=== PATIENT | female | born 2000 | race Caucasian/White ===

== ENCOUNTER 2022-08-16 14:27 | Inpatient (IN) | payer OTHER, SELFPAY ==
[2022-08-16] VITALS (35 sets, daily range): BP systolic 123–173; BP diastolic 70–105; PULSE 59–95; TEMP 36.3–36.5; BMI 37.3
[2022-08-16 15:07] LABS: Basophils Percent Auto 0.2 % (0.2-1.2); Eosinophils Percent Auto 0.3 % (0-4.4); Hematocrit 33.8 % (37.0-47.0); Hemoglobin 10.8 g/dL (12.0-15.0); Immature Granulocyte Absolute 0.03 K/mm3 (0.00-0.031); Immature Granulocyte Percent A 0.3 % (0-0.5); Lymphocytes Absolute Auto 1.44 K/mm3 (0.9-3.2); Lymphocytes Percent Auto 13.5 % (18.3-44.2); Mean Corpuscular Hemoglobin 28.3 pg (26-34); Mean Corpuscular Volume 88.5 fl (80-100); Mean Platelet Volume 12.6 fl (7.4-10.4); Monocytes Absolute Auto 0.5 K/mm3 (0.1-0.6); Monocytes Percent Auto 4.9 % (2.6-8.5); Neutrophils Absolute Auto 8.6 K/mm3 (1.3-6.7); Neutrophils Percent Auto 80.8 % (45.5-73.1); Platelet Count Result 185 k/mm3 (150-375); Red Blood Count 3.82 M/mm3 (4.2-5.4); Red Cell Distribution Width 15.2 % (11.5-14.5); White Blood Count 10.7 K/mm3 (4.5-10.0)
[2022-08-16 15:16] LABS: Alanine Aminotransferase 15 U/L (6-35); Albumin Level 3.2 g/dL (3.5-5.1); Alkaline Phosphatase 165 U/L (38-126); Anion Gap 5 mmol/L (8-16); Aspartate Amino Transferase 18 U/L (14-36); Bilirubin,Total 0.3 mg/dL (0.2-1.3); Blood Urea Nitrogen 13 mg/dL (7-17); Calcium 8.2 mg/dL (8.4-10.2); Carbon Dioxide 20 mmol/L (22-30); Chloride 108 mmol/L (98-107); Estimated Glomerular Filt Rate > 60; Glucose 100 mg/dL (65-110); Sodium 133 mmol/L (137-145); Uric Acid 6.4 mg/dL (2.5-7.5)
[2022-08-16 15:23] LABS: Appearance Urine Turbid (Clear); Bacteria Urine 4+ /hpf; Bilirubin Urine Negative (Negative); Blood Urine Negative (Negative); Color Urine Dark Yellow (Yellow); Glucose Urine UA Negative (Negative); Hyaline Casts Urine Present /lpf; Ketones Urine Trace mg/dL (Negative); Leukocyte Esterase Ur 1+ LEU/UL (NEGATIVE); Mucus Urine Present /lpf; Nitrate Urine Negative (Negative); Non Pathogenic Casts >20; Protein Urine 4+ mg/dL (Negative); RBC Urine 0-2 /hpf (0-2); Squamous Epithelial Cell Urine Many /hpf (Few); WBC Urine 21-50 /hpf (0-3)
[2022-08-16 15:32] LABS: Specific Grav Ur 1.041 (1.001-1.035)
[2022-08-16 15:33] LABS: Add Urine Microscopic? YES
--- NOTE | 2022-08-16 15:50 | PC.NURSE ---
CNM reviewed vitals and labs on unit. Verbal orders given to start 24 hour urine collection as well as giving first dose of betamethasone.
[2022-08-16] MEDS: BETAMETHASONE SOD PHOS/ACETATE 30 MG/5 ML VIAL 12 MG IM (16:03)
[2022-08-16 16:15] LABS: Creatinine Urine 303.5 mg/dL
[2022-08-16] MEDS: LABETALOL HCL 100 MG TABLET 200 MG PO (16:36)
[2022-08-16 16:46] LABS: Total Protein Urine Random > 600 mg/dL
[2022-08-16] MEDS: LABETALOL HCL INJ 100 MG/20 ML VIAL 20 MG IV PUSH (17:14)
--- NOTE | 2022-08-16 17:50 | PC.NURSE ---
Patient's blood pressures have remained in the severe range despite medication. Verbal orders to move patient to labor and delivery and induce received from CNM.
--- NOTE | 2022-08-16 17:52 | LDADM ---
This patient, MEAGAN SHER, was admitted to Labor/Delivery/Recovery 105 on 08/16/22 at 14:27. Plans for labor, pain management and were discussed with patient. Patient/family oriented to hospital policies and general routines including ID bracelet, bed and alarms, visiting hours, pain management, procedures, bathroom and other care routines, personal items, smoking policy, room service/diet and guest tray routines, security routines, and visiting hours. Patient/Family are encouraged to report perceived risks to care and to ask questions if they do not understand what they are told or what they should do. See OBIX for further documentation.
[2022-08-16] MEDS: MAGNESIUM SULF 4 GM/WATER100ML 4 GM/100 ML BAG IVPB (18:12)
--- NOTE | 2022-08-16 18:28 | PC.NURSE ---
Patient moved from room 116 to room 104. tracing from [id number]: Baseline- 135 with moderate variability. 15x15 accelerations present, no decelerations present. [id number] baseline 155 with moderate variability. No accelerations present with recurrent variables.
[2022-08-16] MEDS: MAGNESIUM SULF 20GM/WATER500ML 500 ML 50 MG IV CONT (18:42)
[2022-08-16] MEDS: DINOPROSTONE 10 MG VAG INSERT VAGINAL (18:50)
--- NOTE | 2022-08-16 18:55 | WPDANESEPP ---
Anes - Eval Pre Procedure Procedure: labor epidural Date/Time: 08/16/22 18:55 Pre Op Diagnosis: [facility] Labs Patient Data Age: 22 Gender: F Height: Weight: Last Vital Signs Temp 36.3 C L 08/16/22 18:11 Pulse 80 08/16/22 18:51 BP 142/89 H 08/16/22 18:51 Allergies Allergy/AdvReac Type Severity Reaction Status Date / Time No Known Allergies Allergy Verified 08/16/22 16:03 Laboratory Tests 08/16/22 08/16/22 14:50 17:43 WBC 10.7 H K/mm3 (4.5-10.0) RBC 3.82 L M/mm3 (4.2-5.4) Hgb 10.8 L g/dL (12.0-15.0) Hct 33.8 L % (37.0-47.0) MCV 88.5 fl (80-100) MCH 28.3 pg (26-34) MCHC 32.0 g/dl (32-36) RDW 15.2 H % (11.5-14.5) Plt Count 185 k/mm3 (150-375) MPV 12.6 H fl (7.4-10.4) Immature Gran % (Auto) 0.3 % (0-0.5) Neut % (Auto) 80.8 H % (45.5-73.1) Lymph % (Auto) 13.5 L % (18.3-44.2) [place] % (Auto) 4.9 % (2.6-8.5) Eos % (Auto) 0.3 % (0-4.4) Baso % (Auto) 0.2 % (0.2-1.2) Lymph # (Auto) 1.44 K/mm3 (0.9-3.2) [place] # (Auto) 0.5 K/mm3 (0.1-0.6) Eos # (Auto) 0.0 K/mm3 (0-0.3) Baso # (Auto) 0.0 K/mm3 (0.0-0.1) Abs Immat Gran (auto) 0.03 K/mm3 (0.00-0.031) Absolute Neuts (auto) 8.6 H K/mm3 (1.3-6.7) Absolute Nucleated RBC 0.0 K/mm3 (0.0-0.012) Nucleated RBC % 0.0 % (0.0-0.2) Sodium 133 L mmol/L (137-145) Potassium 4.0 mmol/L (3.4-5.0) Chloride 108 H mmol/L (98-107) Carbon Dioxide 20 L mmol/L (22-30) Anion Gap 5 L mmol/L (8-16) BUN 13 mg/dL (7-17) Creatinine 0.60 L mg/dL (0.7-1.0) Estim Creat Clear Calc Not Reportable Estimated GFR > 60 (59 - ) Glucose 100 mg/dL (65-110) Uric Acid 6.4 mg/dL (2.5-7.5) Calcium 8.2 L mg/dL (8.4-10.2) Total Bilirubin 0.3 mg/dL (0.2-1.3) AST 18 U/L (14-36) ALT 15 U/L (6-35) Alkaline Phosphatase 165 H U/L (38-126) Total Protein 6.0 L g/dL (6.3-8.2) Albumin 3.2 L g/dL (3.5-5.1) Urine Color Dark yellow (Yellow) Urine Appearance Turbid H (Clear) Urine pH 6.0 (5.0-9.0) Ur Specific [place] 1.041 H (1.001-1.035) Urine Protein 4+ H mg/dL (Negative) Urine Glucose (UA) Negative mg/dL (Negative) Urine Ketones Trace H mg/dL (Negative) Ur Blood (Man) Negative (Negative) Urine Nitrate Negative (Negative) Urine Bilirubin Negative (Negative) Urine Urobilinogen 1.0 mg/dL (<2.0) Ur Leukocyte Esterase 1+ H FUAD/UL (NEGATIVE) Urine RBC 0-2 /hpf (0-2) Urine WBC 21-50 /hpf (0-3) Ur Squamous Epith Cells Many H /hpf (Few) Urine Bacteria 4+ H /hpf Urine Casts >20 Hyaline Casts Present /lpf (None) Urine Mucus Present /lpf U Random Total Protein > 600 mg/dL Urine Creatinine 303.5 mg/dL Protein/Creat Ratio 2 > 1.98 H mg/mg (0-0.20) RPR Pending Blood Type A Positive Antibody Screen Negative Patient hx anesthesia problems: none Family hx anesthesia problems: none Results Review: All pre-operative results and documents have been reviewed as part of the pre-operative evaluation. [facility] Past Medical History Medical History (Updated 08/16/22 @ 18:59 by Aimee Olivera CRNA) Adreno-leukodystrophy Obesity (BMI 30-39.9) PIH ( induced hypertension) Exam Day of Procedure 08/16/22 18:55 Patient weight: obese Heart: regular rate and rhythm Lungs: normal air movement Neurological: alert and oriented
[2022-08-17] VITALS (224 sets, daily range): BP systolic 116–150; BP diastolic 67–100; PULSE 58–101; RESP 15–18; TEMP 36.4–36.8; O2SAT 92–100
[2022-08-17 03:35] LABS: Magnesium 5.6 mg/dL (1.6-2.3)
[2022-08-17] MEDS: MAGNESIUM SULF 20GM/WATER500ML 500 ML 50 MG IV CONT ×2 (04:42→14:05)
[2022-08-17] MEDS: LACTATED RINGERS 1,000 ML 75 ML IV CONT ×3 (07:23→23:41)
[2022-08-17] MEDS: miSOPROStol 25 MCG TABLET SUBLINGUAL ×2 (07:54→12:00)
[2022-08-17] MEDS: LABETALOL HCL 100 MG TABLET 200 MG PO ×2 (08:11→19:59)
--- NOTE | 2022-08-17 08:54 | PM.IMHP ---
H&P: HPI History of Present Illness Date/Time: 08/17/22 08:54 Chief Complaint: pt presented 08/16/22 in the office for routine ob visit and had elevated blood pressure x 2. 3+ proteinuria. Pt denied headache, visual changes, epigastric pain. has been complicated. rubella non-immune on panel. family history of x-linked adrenoleukodystrophy. bpp in office 09/17. and pt arrived in LD with severe range blood pressures. Oral and IV labetalol were given and magnesium sulfate was initiated, betamethasone x 1 given and decision was made with Dr. ramos to proceed with induction of labor.pt remains asymptomatic and blood pressures elevated without being severe range Review of Systems Review of Systems: All systems reviewed & are unremarkable except as noted in HPI and below [facility] Past Medical History Medical History (Updated 08/17/22 @ 09:08 by Nhi Cano CNM) Adreno-leukodystrophy Obesity (BMI 30-39.9) PIH ( induced hypertension) Social History Social History Smoking status: Never smoker Lack of Transportation: No Lack of Food: Never True Current Housing: I Do Not Have Housing Concerned About Future Housing: No Difficulty Paying Gas/Electric Bills: No Difficulty Paying for Meds: No Currently Unemployed: No Education: High School Diploma/GED Difficulty w/ Childcare or Family Care: No Meds Home Medications and Allergies Allergies Allergy/AdvReac Type Severity Reaction Status Date / Time No Known Allergies Allergy Verified 08/16/22 16:03 Vital Signs Vital Signs - 24 hr 08/16/22 14:55 08/16/22 15:01 08/16/22 15:16 Temperature Pulse Rate 70 75 74 Respiratory Rate Blood Pressure 141/96 H 144/95 H 153/85 H Blood Pressure [Left Arm] Pulse Oximetry Oxygen Delivery 08/16/22 15:31 08/16/22 15:46 08/16/22 16:01 Temperature Pulse Rate 61 59 L 62 Respiratory Rate Blood Pressure 162/97 H 160/97 H 166/102 H Blood Pressure [Left Arm] Pulse Oximetry Oxygen Delivery 08/16/22 16:17 08/16/22 16:31 08/16/22 16:46 Temperature Pulse Rate 63 59 L 62 Respiratory Rate Blood Pressure 146/100 H 164/98 H 172/105 H Blood Pressure [Left Arm] Pulse Oximetry Oxygen Delivery 08/16/22 17:16 08/16/22 17:31 08/16/22 17:46 Temperature Pulse Rate 67 70 81 Respiratory Rate Blood Pressure 173/102 H 158/100 H 139/102 H Blood Pressure [Left Arm] Pulse Oximetry Oxygen Delivery 08/16/22 18:01 08/16/22 18:11 08/16/22 18:13 Temperature 36.3 C L Pulse Rate 70 78 Respiratory Rate Blood Pressure 153/94 H 152/98 H Blood Pressure [Left Arm] Pulse Oximetry Oxygen Delivery 08/16/22 18:15 08/16/22 18:16 08/16/22 18:21 Temperature Pulse Rate 81 81 78 Respiratory Rate Blood Pressure 148/101 H 154/97 H 142/92 H Blood Pressure [Left Arm] Pulse Oximetry Oxygen Delivery 08/16/22 18:25 08/16/22 18:30 08/16/22 18:35 Temperature Pulse Rate 87 85 85 Respiratory Rate Blood Pressure 142/85 H 145/92 H 140/90 Blood Pressure [Left Arm] Pulse Oximetry Oxygen Delivery 08/16/22 18:51 08/16/22 19:00 08/16/22 19:15 Temperature Pulse Rate 80 72 71 Respiratory Rate Blood Pressure 142/89 H 133/84 137/88 Blood Pressure [Left Arm] Pulse Oximetry Oxygen Delivery 08/16/22 19:30 08/16/22 20:00 08/16/22 20:30 Temperature Pulse Rate 78 85 79 Respiratory Rate Blood Pressure 141/88 H 140/91 H 135/82 Blood Pressure [Left Arm] Pulse Oximetry Oxygen Delivery 08/16/22 21:00 08/16/22 21:30 08/16/22 22:00 Temperature Pulse Rate 95 70 71 Respiratory Rate Blood Pressure 139/70 126/72 125/78 Blood Pressure [Left Arm] Pulse Oximetry Oxygen Delivery 08/16/22 22:30 08/16/22 23:00 08/17/22 00:00 Temperature 36.5 C Pulse Rate 72 76 75 Respiratory Rate Blood Pressu
[2022-08-17] MEDS: BETAMETHASONE SOD PHOS/ACETATE 30 MG/5 ML VIAL 12 MG IM (15:57)
[2022-08-17] MEDS: AMPICILLIN 2 GM/NS 100 ML 2 GM/100 ML BAG IVPB (16:31)
[2022-08-17] MEDS: OXYTOCIN 30 UNITS/NS 500 ML 30 UNITS/500 ML BAG 6 UNITS IV CONT (16:35)
[2022-08-17] MEDS: AMPICILLIN 1 GM/NS 50 ML 1 GM/50 ML BAG IVPB (19:59)
[2022-08-17 20:15] LABS: Albumin Level 3.2 g/dL (3.5-5.1); Alkaline Phosphatase 187 U/L (38-126); Anion Gap 5 mmol/L (8-16); Aspartate Amino Transferase 21 U/L (14-36); Bilirubin,Total 0.3 mg/dL (0.2-1.3); Blood Urea Nitrogen 11 mg/dL (7-17); Carbon Dioxide 20 mmol/L (22-30); Chloride 101 mmol/L (98-107); Estimated CRCL calculation 147 ml/min; Estimated Glomerular Filt Rate > 60; Glucose 145 mg/dL (65-110); Potassium 4.1 mmol/L (3.4-5.0); Sodium 126 mmol/L (137-145); Uric Acid 6.4 mg/dL (2.5-7.5)
[2022-08-17 20:24] LABS: Alanine Aminotransferase 32 U/L (6-35)
[2022-08-17 20:24] LABS: Basophils Percent Auto 0.1 % (0.2-1.2); Hematocrit 34.5 % (37.0-47.0); Hemoglobin 11.1 g/dL (12.0-15.0); Immature Granulocyte Absolute 0.16 K/mm3 (0.00-0.031); Immature Granulocyte Percent A 1.1 % (0-0.5); Lymphocytes Absolute Auto 0.73 K/mm3 (0.9-3.2); Lymphocytes Percent Auto 5.2 % (18.3-44.2); Mean Corpuscular HGB Conc 32.2 g/dl (32-36); Mean Corpuscular Hemoglobin 28.5 pg (26-34); Mean Corpuscular Volume 88.5 fl (80-100); Monocytes Absolute Auto 0.2 K/mm3 (0.1-0.6); Monocytes Percent Auto 1.6 % (2.6-8.5); Platelet Count Result 191 k/mm3 (150-375); Red Cell Distribution Width 15.7 % (11.5-14.5); White Blood Count 14.1 K/mm3 (4.5-10.0)
[2022-08-17] MEDS: ONDANSETRON INJ 4 MG/2 ML VIAL IV PUSH (22:46)
[2022-08-18] VITALS (292 sets, daily range): BP systolic 93–207; BP diastolic 52–160; PULSE 53–198; RESP 10–18; TEMP 36.2–37.1; O2SAT 94–100; BMI 37.5
[2022-08-18] MEDS: AMPICILLIN 1 GM/NS 50 ML 1 GM/50 ML BAG IVPB ×3 (00:06→08:04)
--- NOTE | 2022-08-18 08:12 | PM.OBPNVD ---
OB - PN: Subj Subjective Date/time seen: 08/18/22 08:12 IOL, preeclampsia with severe features, denies headache, visual changes, epigastric pain. Blood pressures currently normotensive. slightly elevated liver enzymes. Pt comfortable with epidural. OB - PN: Obj Data Labs 08/17/22 20:20 08/17/22 19:53 Labs: Laboratory Results - last 24 hr 08/17/22 08/17/22 19:53 20:20 WBC 14.1 H RBC 3.90 L Hgb 11.1 L Hct 34.5 L MCV 88.5 MCH 28.5 MCHC 32.2 RDW 15.7 H Plt Count 191 MPV 12.0 H Immature Gran % (Auto) 1.1 H Neut % (Auto) 92.0 H Lymph % (Auto) 5.2 L [place] % (Auto) 1.6 L Eos % (Auto) 0.0 Baso % (Auto) 0.1 L Lymph # (Auto) 0.73 L [place] # (Auto) 0.2 Eos # (Auto) 0.0 Baso # (Auto) 0.0 Abs Immat Gran (auto) 0.16 H Absolute Neuts (auto) 13.0 H Absolute Nucleated RBC 0.0 Nucleated RBC % 0.0 Sodium 126 L Potassium 4.1 Chloride 101 Carbon Dioxide 20 L Anion Gap 5 L BUN 11 Creatinine 0.60 L Estim Creat Clear Calc 147 Estimated GFR > 60 Glucose 145 H Uric Acid 6.4 Calcium 7.0 L Total Bilirubin 0.3 AST 21 ALT 32 Alkaline Phosphatase 187 H Total Protein 6.0 L Albumin 3.2 L OB - PN A/P Assessment and Plan (1) Severe preeclampsia: Code(s): O14.10 - Severe pre-eclampsia, unspecified trimester Status: Acute Plan preeclampsia with severe features continue to monitor, IOL co-managed with Dr. Pollack Time Spent With Patient Time: Total time spent is greater than 50% in coordination of care (as documented) at patient's floor/unit and/or counseling patient: Review of Systems Review of Systems: All systems reviewed & are unremarkable except as noted in HPI and below Exam Const: General: cooperative Chest: Chest palpation & inspection: normal inspection of the chest Resp: Effort & Inspection: normal respiratory effort Cardio: Rate: regular rate Rhythm: regular rhythm GI: Other: gravid, soft in between contractions : Other: SVE 5/80/-2, AROM small amount of clear, odorless fluid, bloody show Urinary Catheter: Urinary Catheter: patent and draining Skin: General skin exam: normal color Extrem: Right lower extremity: normal to inspection Left lower extremity: normal to inspection Psych: Appearance: grossly normal
[2022-08-18] MEDS: diphenhydrAMINE HCl INJ 50 MG/ML VIAL 25 MG IV PUSH (08:27)
[2022-08-18] MEDS: OXYTOCIN 10 UNITS/ML VIAL 20 UNITS (10:55)
[2022-08-18] MEDS: MAGNESIUM SULF 20GM/WATER500ML 500 ML 50 MG IV CONT ×3 (10:58→22:18)
--- NOTE | 2022-08-18 11:05 | PM.OBPRVD ---
OB - Delivery Note Procedure Delivery date: 08/18/22 Procedure: Events: Oligohydramnios and Preeclampsia w severe features Induction method: AROM, Per Misoprostol Protocol, Per Pitocin Protocol and Per Cervidil Protocol Delivery monitor: External FHT, External Uterine and Internal Uterine Route of delivery: Laceration Description: Labial (right) Delivery repair: vicryl Specimen: Yes Quantitative Blood Loss (ml): 380 Anesthesia type: Epidural Disposition: Floor [place] Baby Date of : 08/18/22 Time of : 10:51 Weeks of gestation at delivery: 35 Infant gender: Female Weight (pounds): 5 Weight (ounces): 9 presentation: vertex position: Left Occiput Anterior Placenta delivery description: Spontaneous Cord Vessel Description: 3 Vessels and Clamped/Cut Narrative: baby to warmer, mother in stable condition
[2022-08-18 14:23] LABS: Magnesium 7.2 mg/dL (1.6-2.3)
[2022-08-18 14:46] LABS: Hematocrit 28.6 % (37.0-47.0); Hemoglobin 8.8 g/dL (12.0-15.0); Mean Corpuscular HGB Conc 30.8 g/dl (32-36); Mean Corpuscular Hemoglobin 27.9 pg (26-34); Mean Corpuscular Volume 90.8 fl (80-100); Mean Platelet Volume 12.5 fl (7.4-10.4); Platelet Count Result 210 k/mm3 (150-375); Red Blood Count 3.15 M/mm3 (4.2-5.4); Red Cell Distribution Width 15.8 % (11.5-14.5); White Blood Count 20.3 K/mm3 (4.5-10.0)
[2022-08-18 14:52] LABS: Alanine Aminotransferase 31 U/L (6-35); Albumin Level 2.7 g/dL (3.5-5.1); Alkaline Phosphatase 150 U/L (38-126); Anion Gap 4 mmol/L (8-16); Aspartate Amino Transferase 22 U/L (14-36); Bilirubin,Total 0.4 mg/dL (0.2-1.3); Blood Urea Nitrogen 13 mg/dL (7-17); Calcium 7.3 mg/dL (8.4-10.2); Carbon Dioxide 22 mmol/L (22-30); Chloride 99 mmol/L (98-107); Estimated CRCL calculation 101 ml/min; Estimated Glomerular Filt Rate > 60; Glucose 133 mg/dL (65-110); Potassium 4.3 mmol/L (3.4-5.0); Sodium 125 mmol/L (137-145); Uric Acid 6.9 mg/dL (2.5-7.5)
[2022-08-18] MEDS: LACTATED RINGERS 1,000 ML 75 ML IV CONT (15:33)
--- NOTE | 2022-08-18 17:13 | OBPPTRN ---
1711-Patient transferred to post room #281 via wheelchair. Support person present. Oriented to unit, room, information board, rooming in, admission packet and security measures. Patient verbalizes understanding.
[2022-08-18] MEDS: DOCUSATE SODIUM 100 MG CAPSULE PO (19:26)
[2022-08-18] MEDS: ACETAMINOPHEN 325 MG TABLET 650 MG PO (19:26)
[2022-08-18] MEDS: IBUPROFEN 600 MG TABLET PO (19:27)
[2022-08-18] MEDS: WITCH HAZEL 40 PADS 1 PAD TOPICAL (19:27)
[2022-08-18] MEDS: POLYSACCHARIDE IRON COMPLEX 150 MG CAPSULE PO (19:28)
[2022-08-18] MEDS: BENZOCAINE 20% AER SPR (*SP) 56 GM CAN 1 SPRAY TOPICAL (19:28)
[2022-08-18] MEDS: LABETALOL HCL 100 MG TABLET 200 MG PO (21:22)
[2022-08-19] VITALS (7 sets, daily range): BP systolic 126–155; BP diastolic 74–99; PULSE 65–72; RESP 16–18; TEMP 36.3–38.3; O2SAT 99
[2022-08-19] MEDS: IBUPROFEN 600 MG TABLET PO ×3 (00:36→13:53)
[2022-08-19] MEDS: ACETAMINOPHEN 325 MG TABLET 650 MG PO ×3 (00:36→13:53)
[2022-08-19] MEDS: LACTATED RINGERS 1,000 ML 75 ML IV CONT (04:28)
[2022-08-19 05:05] LABS: Basophils Percent Auto 0.1 % (0.2-1.2); Hematocrit 27.1 % (37.0-47.0); Hemoglobin 8.5 g/dL (12.0-15.0); Immature Granulocyte Absolute 0.09 K/mm3 (0.00-0.031); Immature Granulocyte Percent A 0.8 % (0-0.5); Lymphocytes Absolute Auto 1.52 K/mm3 (0.9-3.2); Lymphocytes Percent Auto 12.7 % (18.3-44.2); Mean Corpuscular HGB Conc 31.4 g/dl (32-36); Mean Corpuscular Hemoglobin 28.5 pg (26-34); Mean Corpuscular Volume 90.9 fl (80-100); Mean Platelet Volume 12.5 fl (7.4-10.4); Monocytes Absolute Auto 0.5 K/mm3 (0.1-0.6); Monocytes Percent Auto 4.5 % (2.6-8.5); Neutrophils Absolute Auto 9.8 K/mm3 (1.3-6.7); Neutrophils Percent Auto 81.9 % (45.5-73.1); Platelet Count Result 169 k/mm3 (150-375); Red Blood Count 2.98 M/mm3 (4.2-5.4); Red Cell Distribution Width 15.7 % (11.5-14.5)
[2022-08-19 05:16] LABS: Alanine Aminotransferase 16 U/L (6-35); Albumin Level 2.6 g/dL (3.5-5.1); Alkaline Phosphatase 133 U/L (38-126); Anion Gap 3 mmol/L (8-16); Aspartate Amino Transferase 20 U/L (14-36); Bilirubin,Total 0.2 mg/dL (0.2-1.3); Blood Urea Nitrogen 17 mg/dL (7-17); Calcium 6.8 mg/dL (8.4-10.2); Carbon Dioxide 24 mmol/L (22-30); Chloride 100 mmol/L (98-107); Estimated CRCL calculation 92 ml/min; Estimated Glomerular Filt Rate > 60; Glucose 95 mg/dL (65-110); Potassium 4.3 mmol/L (3.4-5.0); Sodium 127 mmol/L (137-145); Uric Acid 7.2 mg/dL (2.5-7.5)
[2022-08-19 05:37] LABS: Rapid Plasma Reagin Non-Reactive (NonReactive)
--- NOTE | 2022-08-19 06:42 | PM.OBPNVD ---
OB - PN: Subj Subjective Date/time seen: 08/19/22 06:42 delivered, preeclampsia with severe features currently denies headache, visual changes, epigastric pain blood pressures normotensive liver enzymes stable PLT 169 OB - PN: Obj Data Labs 08/19/22 04:25 08/19/22 04:25 Labs: Laboratory Results - last 24 hr 08/16/22 08/18/22 08/18/22 17:43 14:00 14:06 WBC RBC Hgb Hct MCV MCH MCHC RDW Plt Count MPV Immature Gran % (Auto) Neut % (Auto) Lymph % (Auto) [place] % (Auto) Eos % (Auto) Baso % (Auto) Lymph # (Auto) [place] # (Auto) Eos # (Auto) Baso # (Auto) Abs Immat Gran (auto) Absolute Neuts (auto) Absolute Nucleated RBC Nucleated RBC % Sodium 125 L Potassium 4.3 Chloride 99 Carbon Dioxide 22 Anion Gap 4 L BUN 13 Creatinine 0.90 Estim Creat Clear Calc 101 Estimated GFR > 60 Glucose 133 H Uric Acid 6.9 Calcium 7.3 L Magnesium 7.2 H Total Bilirubin 0.4 AST 22 ALT 31 Alkaline Phosphatase 150 H Total Protein 5.0 L Albumin 2.7 L RPR Non-reactive 08/18/22 08/19/22 14:34 04:25 WBC 20.3 H 12.0 H RBC 3.15 L 2.98 L Hgb 8.8 L 8.5 L Hct 28.6 L 27.1 L MCV 90.8 90.9 MCH 27.9 28.5 MCHC 30.8 L 31.4 L RDW 15.8 H 15.7 H Plt Count 210 169 MPV 12.5 H 12.5 H Immature Gran % (Auto) 0.8 H Neut % (Auto) 81.9 H Lymph % (Auto) 12.7 L [place] % (Auto) 4.5 Eos % (Auto) 0.0 Baso % (Auto) 0.1 L Lymph # (Auto) 1.52 [place] # (Auto) 0.5 Eos # (Auto) 0.0 Baso # (Auto) 0.0 Abs Immat Gran (auto) 0.09 H Absolute Neuts (auto) 9.8 H Absolute Nucleated RBC 0.0 Nucleated RBC % 0.0 Sodium 127 L Potassium 4.3 Chloride 100 Carbon Dioxide 24 Anion Gap 3 L BUN 17 Creatinine 1.00 Estim Creat Clear Calc 92 Estimated GFR > 60 Glucose 95 Uric Acid 7.2 Calcium 6.8 L Magnesium Total Bilirubin 0.2 AST 20 ALT 16 Alkaline Phosphatase 133 H Total Protein 5.0 L Albumin 2.6 L RPR OB - PN A/P Plan day: 1 Plan: routine care Comments: magnesium sulfate plan to d/c this am continue to monitor blood pressures and symptoms co-managing with Dr. Pollack Time Spent With Patient Time: Total time spent is greater than 50% in coordination of care (as documented) at patient's floor/unit and/or counseling patient: Review of Systems Review of Systems: All systems reviewed & are unremarkable except as noted in HPI and below Exam Const: General: cooperative and healthy appearing Chest: Chest palpation & inspection: normal inspection of the chest Resp: Effort & Inspection: normal respiratory effort Cardio: Rate: regular rate Rhythm: regular rhythm GI: Other: soft Back/Spine/Pelvis: Back: no CVA tenderness Skin: General skin exam: normal color Neuro: General: patient oriented x3 Extrem: Right lower extremity: edema (2+) Left lower extremity: edema (2+) Psych: Appearance: grossly normal
[2022-08-19] MEDS: DOCUSATE SODIUM 100 MG CAPSULE PO ×2 (07:58→17:34)
[2022-08-19] MEDS: POLYSACCHARIDE IRON COMPLEX 150 MG CAPSULE PO ×2 (07:58→17:34)
[2022-08-19] MEDS: LABETALOL HCL 100 MG TABLET 200 MG PO (07:59)
[2022-08-19] MEDS: MAGNESIUM SULF 20GM/WATER500ML 500 ML 50 MG IV CONT (08:04)
[2022-08-19] MEDS: MULTIVIT/MIN/PREN/FOL AC/IRON TABLET 1 TAB PO (08:04)
[2022-08-19] MEDS: LABETALOL HCL 100 MG TABLET 300 MG PO (20:58)
[2022-08-20] VITALS (7 sets, daily range): BP systolic 120–153; BP diastolic 71–99; PULSE 63–69; RESP 16–18; TEMP 36.6–37.2; O2SAT 99–100
[2022-08-20] MEDS: DOCUSATE SODIUM 100 MG CAPSULE PO ×2 (09:08→17:10)
[2022-08-20] MEDS: POLYSACCHARIDE IRON COMPLEX 150 MG CAPSULE PO ×2 (09:09→17:10)
[2022-08-20] MEDS: LABETALOL HCL 100 MG TABLET 300 MG PO ×2 (09:09→20:48)
--- NOTE | 2022-08-20 09:39 | PM.OBDSVD ---
DS: Admitting Diagnosis Discharge Date 08/20/22 Admitting Diagnosis preeclampsia DS: Discharge Diagnosis Discharge Diagnosis (1) Severe preeclampsia: Code(s): O14.10 - Severe pre-eclampsia, unspecified trimester Status: Acute OB - DS: Summary OB Procedures : PIH Mgmt OB Procedures Intrapartum: Spontaneous Vag Delivery OB Procedures: : None Time Spent with Patient Time attestation: Total time spent providing and/or coordinating discharge services: DS: Data Data Completed and Pending Pending studies at discharge: Pending at discharge 08/18/22 10:53 Surgical [PTH] Routine Discharge Plan Discharge Discharging Clinician: Juan Pollack Patient Disposition: Home, Self-Care Activity: pelvic rest Diet: regular Patient Instructions: Antibiotic Form Stand Alone Forms: General Discharge Information Follow-up/Referrals: Juan Pollack MD [Physician] - Discharge Medications: New labetalol 100 mg Tablet 300 mg PO Q12HR Qty: 60 0RF Continued Children's Vitamin Tablet,Chewable 1 tablet PO DAILY Date of admission: 08/16/22 14:27 Primary Care Provider: Nhi Cano Admitting Provider: Juan Pollack Attending physician on admission: Juan Pollack Condition: Stable
--- NOTE | 2022-08-20 09:42 | PM.OBPNVD ---
OB - PN: Subj Subjective Date/time seen: 08/20/22 09:42 Patient comments: no complaints, pain well controlled and tolerating diet OB - PN: Obj Data Labs 08/19/22 04:25 08/19/22 04:25 OB - PN A/P Plan day: 2 Plan: routine care and discharge home Comments: Peripartum complicated by preeclampsia, treated with MAC, blood pressure stable on 300 labetalol b.i.d. to be discharged today on labetalol. Follow-up in 1 week. Time Spent With Patient Time: Total time spent is greater than 50% in coordination of care (as documented) at patient's floor/unit and/or counseling patient: Exam Const: General: comfortable and no acute distress Resp: Effort & Inspection: normal respiratory effort Auscultation: no rales, no rhonchi and no wheezes Cardio: Rate: regular rate Heart sounds: no click, no murmurs and no rubs GI: GI Palp: Yes Soft to palpation and No Tenderness to palpation present (GI) Auscultation: normal bowel sounds Extrem: General: normal to inspection, no pedal edema and no calf tenderness
[2022-08-20] MEDS: MULTIVITS W-FE,MIN CHEWABLE TABLET 1 TABLET PO (13:33)
--- NOTE | 2022-08-20 16:14 | PC.NURSE ---
Report received day one of delivery that mother is bottle feeding, doesn't feel well enough to breastfeed and is not using the pump provided. Report received day two is mother is bottle feeding and not .
[2022-08-20] MEDS: MEASLES,MUMPS,RUBELLA VACCINE 0.5 ML VIAL (17:10)
--- NOTE | 2022-08-20 18:41 | PC.NURSE ---
Patient instructed to view the discharge video Mother & Baby Care, The First Two Weeks . Patient was given the opportunity and encouraged to ask questions. Patient verbalized understanding of information shared and has been given the mother/baby guide for home reference.
--- NOTE | 2022-08-20 21:00 | PC.NURSE ---
Patient discharged to a no care bed. Supplies given, evening dose of Labetalol given.
[2022-08-21 10:28] VITALS: BP 133/81; PULSE 81; RESP 18; TEMP 37.2; O2SAT 100
== END 2022-08-20 21:00 | disposition home or self-care (01) | DRG 560 ==
LOC: ANHLDR 08-18 11:12 → ANHOB2 08-18 17:58
PROVIDERS: Admitting Provider Obstetrics & Gynecology; PCP Advanced Practice Midwife; Visit Provider Obstetrics & Gynecology
DX: O14.14 Severe pre-eclampsia complicating childbirth (principal); O41.03X0 Oligohydramnios, third trimester, not applicable or unspecified; Z37.0 Single live birth; Z3A.35 35 weeks gestation of pregnancy
CPT/HCPCS: 36415; 59025; 80053; 81001; 82570; 83735; 84156; 84550; 85025; 85027; 86592; 86850; 86900; 86901; 87086; 88307; 90710; 96372; A9270; J0290; J0702; J1200; J2405; J2590; J2795; J3475; J7120